=== PATIENT | male | born 1950 | race Caucasian/White ===

== ENCOUNTER 2019-03-06 08:53 | Day surgery (SDC) | payer OTHER ==
[2019-03-05 15:58] VITALS: BMI 24.7
[2019-03-06 11:27] VITALS: TEMP 97.6
[2019-03-06 12:23] VITALS: BP 126/78; PULSE 52
--- NOTE | 2019-03-09 17:27 | PATH ---
Surgical Pathology Report Patient Name: EKATERINA DIMAS [facility]. Rec. #: [id number] /Age/Gender: 1950 (Age: 68) / M Account: [id number] Location: U-ENDOSCOPY Taken: 03/06/2019 Received: 03/06/2019 Reported: 03/09/2019 Physicians: Rosa Terry M.D. Specimen(s) Received DESCENDING COLON POLYP Clinical History History of colon polyps Postoperative diagnosis: Diverticulosis, colon polyp, hemorrhoids Final Diagnosis DESCENDING COLON, POLYP, BIOPSY: POLYPOID COLONIC MUCOSA WITH PROMINENT LYMPHOID AGGREGATE. Electronically Signed Oralia Hunter M.D. Gross Description Received in formalin, labeled "descending colon polyp biopsy" is a ceballos, irregular portion of soft tissue measuring 0.3 cm. in greatest dimension. The specimen is submitted in toto in one cassette. /03/06/2019 saudi03/06/2019
== END 2019-03-06 12:22 | disposition home or self-care (01) ==
LOC: JASU-ENDO 08:53
PROVIDERS: ATTEND Internal Medicine Gastroenterology
PROC: 0DBM8ZX Excision of Descending Colon, Via Natural or Artificial Opening Endoscopic, Diagnostic (ICD-10-PCS; principal; 2019-03-06 09:30)
DX: Z51.11 Encounter for antineoplastic chemotherapy (principal); Z86.010 Personal history of colon polyps; D12.4 Benign neoplasm of descending colon; K57.30 Diverticulosis of large intestine without perforation or abscess without bleeding; K64.8 Other hemorrhoids
CPT/HCPCS: 88305-TC

== ENCOUNTER 2024-03-05 04:37 | Day surgery (SDC) | payer OTHER ==
[2024-03-04 09:16] VITALS: BMI 24.5
[2024-03-05] MEDS ORDERED: LIDOCAINE HCL 2% JELLY 11 ML TP ONE (08:41)
[2024-03-05] MEDS ORDERED: KETOROLAC TROMETHAMINE 30 MG/1 ML VIAL ONE (09:13)
[2024-03-05 09:18] VITALS: TEMP 97.9
[2024-03-05 09:50] VITALS: BP 124/74; PULSE 56; RESP 16
== END 2024-03-05 09:53 | disposition home or self-care (01) ==
LOC: JASU-ENDO 04:37
PROVIDERS: ATTEND Internal Medicine Gastroenterology
PROC: 0DBN8ZX Excision of Sigmoid Colon, Via Natural or Artificial Opening Endoscopic, Diagnostic (ICD-10-PCS; 2024-03-05)
PROC: 06LY8CC Occlusion of Hemorrhoidal Plexus with Extraluminal Device, Via Natural or Artificial Opening Endoscopic (ICD-10-PCS; principal; 2024-03-05 09:00)
DX: Z12.11 Encounter for screening for malignant neoplasm of colon (principal); K64.8 Other hemorrhoids; K57.30 Diverticulosis of large intestine without perforation or abscess without bleeding; D12.5 Benign neoplasm of sigmoid colon
CPT/HCPCS: 88305-TC